=== PATIENT | male | born 1995 | race Caucasian/White ===

== ENCOUNTER 2017-01-15 13:00 | Emergency (ER) | payer OTHER ==
[~2017-01-15] VITALS: Ht 195.6 cm; Wt 89.8 kg
[2017-01-15 14:25] LABS: HEMATOCRIT 42.3 % (42.0-52.0); HEMOGLOBIN 14.4 gm/dL (14.0-18.0); MCH 29.6 pg (26.0-34.0); MCV 87.1 fL (80.0-100.0); PLATELET COUNT 174 thou/uL (150-400); RBC 4.85 mil/uL (4.50-6.00); RDW 13.2 % (10.5-14.5); WBC 15.4 thou/uL (4.0-11.0)
[2017-01-15 14:27] LABS: MANUAL DIFF YES
[2017-01-15 14:34] LABS: CALCIUM 9.1 mg/dL (8.5-10.1); CREATININE 1.1 mg/dL (0.7-1.3); POTASSIUM 3.7 mmol/L (3.5-5.1)
[2017-01-15 14:48] LABS: ABSOLUTE NEUTROPHILS 12.6 thou/uL (1.4-8.2); TOTAL CELL COUNT 100
[2017-01-15] MEDS ORDERED: CEFDINIR300 MG PO (16:03)
[2017-01-15 16:28] VITALS: BP 140/52
== END 2017-01-15 16:29 | disposition home or self-care (01) ==
LOC: EDSEX 13:00 → ER 13:00
PROVIDERS: Emergency Medicine
DX: J03.90 Acute tonsillitis, unspecified (principal)